=== PATIENT | male | born 1975 | race Hispanic/Latino ===

== ENCOUNTER 2018-02-21 22:50 | Emergency (ER) | payer OTHER | END 2018-02-22 01:09 | disposition home or self-care (01) | LOC: EDH 22:50 | DX: J40 Bronchitis, not specified as acute or chronic (principal); Z87.891 Personal history of nicotine dependence | CPT/HCPCS: 99281 ==

== ENCOUNTER 2019-07-20 10:01 | Emergency (ER) | payer OTHER ==
[2019-07-20] MEDS ORDERED: KETOROLAC TROMETHAMINE 60 MG/2 ML VIAL ONE (10:25)
[2019-07-20] MEDS ORDERED: CYCLOBENZAPRINE HCL 10 MG TABLET ONE (10:25)
== END 2019-07-20 11:23 | disposition home or self-care (01) ==
LOC: EDH 10:01
DX: S46.912A Strain of unspecified muscle, fascia and tendon at shoulder and upper arm level, left arm, initial encounter (principal); V49.88XA Car occupant (driver) (passenger) injured in other specified transport accidents, initial encounter; Y93.89 Activity, other specified; Y92.410 Unspecified street and highway as the place of occurrence of the external cause; Y99.8 Other external cause status
CPT/HCPCS: 73030; 96372; 99284; J1885